=== PATIENT | female | born 1950 | race Caucasian/White ===

== ENCOUNTER 2018-07-17 23:06 | Inpatient (IN) | payer OTHER ==
[~2018-07-17] VITALS: Ht 167.6 cm; Wt 142.4 kg
--- NOTE | ~2018-07-17 | CON ---
[address] [address] CONSULTATION Name: SHELDON PAYNE Room: [address] IN .R.#: [id number] Admission: 07/18/18 Attend Phys: Arturo Aaron Discharge: Date of : 52 Report #: [id number] THIS REPORT FOR: //name// CC: Sami Judge DATE OF SERVICE: 07/18/2018 HISTORY OF PRESENT ILLNESS: The patient is a pleasant 68-year-old female with past medical history significant for diabetes mellitus, hypertension and sleep apnea, who presented to the hospital with epigastric abdominal pain. The patient reports that she had acute onset of pain the night before presentation. The patient states the pain is located in the mid abdomen. It is associated with nausea and a few episodes of vomiting and diaphoresis. The patient also reports malaise and extreme weakness. The patient denies any recent travel or coming into contact with sick people. She reports her last meal was 6:00 p.m. the night prior to presentation, at which time she had some sandwiches from [employer]. The patient denies any hematemesis, hematochezia or recent weight loss. PAST MEDICAL HISTORY: As mentioned above, the patient has a past medical history of hypertension, diabetes, hyperlipidemia and sleep apnea. PAST SURGICAL HISTORY: The patient had laminectomy in 2000. She had remote history of cholecystectomy, tubal ligation and . There is also a history of uterine cancer and had a hysterectomy in the remote past. FAMILY HISTORY: The family history is positive for Crohn's disease, but there is no family history of colorectal cancer. SOCIAL HISTORY: The patient denies smoking, alcohol or recreational drug use. REVIEW OF SYSTEMS: A comprehensive 10-point review of systems is negative, except for what is mentioned in the HPI. PHYSICAL EXAMINATION: GENERAL: Awake, alert and oriented x 3. HEENT: Pupils are equal, round and reactive to light and accommodation. Mucous membranes are moist. There is no congestion. No scleral icterus. LUNGS: Clear to auscultation bilaterally. CARDIOVASCULAR EXAMINATION: Rate and rhythm regular, S1, S2 present. ABDOMEN: Soft. There is no distention. There is no Santos sign. No guarding or rigidity. No tenderness to deep palpation noted. EXTREMITIES: There is no edema. LABORATORY DATA: Hemoglobin 14.8, hematocrit 46.3, platelet count 146,000 [place] [address] CONSULTATION Name: SHELDON PAYNE Room: [address] IN [facility]#: [id number] Admission: 07/18/18 Attend Phys: Arturo Aaron Discharge: Date of : 52 Report #: [id number] WBC count 13.5 with absolute neutrophil count 10 and absolute lymphocyte count 20. AST 47, ALT 81, alkaline phosphatase 127 and total bilirubin 0.5. IMAGING: CT abdomen and pelvis, this demonstrates prominent small bowel loops extending into the pelvis, which may represent partial obstruction versus inflammation of the proximal small bowel. The more distal small bowel is decompressed, although it does contain a small amount of fluid. Small amount of fluid is also present in the cecum. No evidence of pneumatosis, portal vein gas or free air. No evidence of colonic obstruction. Small hiatus hernia, small umbilical hernia, nodular surface of the liver and hypertrophy of the left lobe suggests early cirrhosis. Small periportal lymph node may also be secondary to cirrhosis. ASSESSMENT AND PLAN: This is a pleasant 68-year-old female with past medical history outlined as above, who is presenting with abdominal pain, nausea, vomiting and diaphoresis. The patient noted to have thickening of the small bowel on CT scan. 1. Enteritis. This is likely a viral enteritis and we would recommend conservative therapy at this time. She does not have any evidence of bowel obstruction, and therefore, the patient can be placed on clear liquids and we can advance diet as she tolerates it. 2. Elevated WBC count. This may be reactive in response to viral infection. However, since her lymphocyte count is elevated, I would like to get Hematology consultation to rule out any other causes. 3. Nodular contour seen on the liver along with elevated LFTs. The patient probably has early-stage cirrhosis. We would follow up with her in the clinic in 4-8 weeks for cirrhosis workup. The GI service will continue to follow. Thank you for this consult. By: 1323 2126Doug Spain MD /nt
[~2018-07-17 23:06] MED LIST: ACYCLOVIR 400400 MG PO; CALCIUM; CARDURA; CARDURA1 MG PO; CLEOCIN HCL150 MG PO; COLACE 100 MG100 MG PO; CYCLOBENZAPRINE10 MG PO; GLUCOPHAGE1000 MG PO; JANUVIA25 MG PO; LISINOPRIL20 MG PO; LISINOPRIL5 MG PO; LOTREL 10-20 M1 EACH PO; METFORMIN; MIRALAX255 GM PO; MULTIVIT FLUOR PO; NEURONTIN600 MG PO; NORVASC5 MG PO; OMEGA-31000 MG PO; PERCOCET 5-3251 EACH PO; PRAVACHOL; PREDNISONE 20 M20 M1 PO; PRINIVIL20 MG PO; SUPER B COMPLE1 EAC2 PO; TRAMADOL 50 MG50 MG PO; ULTRAM 50MG TAB50 MG PO; VICODIN 5-5001 EACH PO; VITAMIN A10000 UNI3; VITAMIN D1000 UNI1 PO; VITAMIN E400 UNIT PO; ZOFRAN ODT4 MG PO; ZYLOPRIM300 MG PO
[2018-07-17 23:09] VITALS: BP 127/68
[2018-07-17 23:35] LABS: HEMATOCRIT 46.3 % (37.0-47.0); MCH 29.8 pg (26.0-34.0); MCHC 32.5 g/dL (28.0-37.0); MCV 91.7 fL (80.0-100.0); NUCLEATED RBCS 0 /100WBC; PLATELET COUNT* 146 thou/uL (150-400); RBC 5.05 mil/uL (4.20-5.00); RDW-CV 13.6 % (10.5-14.5); WBC 30.5 thou/uL (4.0-11.0)
[2018-07-17 23:42] LABS: ANION GAP 10 mmol/L (7-16); BUN 23 mg/dL (7-18); CALCIUM 9.2 mg/dL (8.5-10.1); CHLORIDE 102 mmol/L (98-107); CO2 30 mmol/L (21-32); CREATININE 0.9 mg/dL (0.6-1.3); GLUCOSE 185 mg/dL (70-99); POTASSIUM 4.4 mmol/L (3.5-5.1); SODIUM 142 mmol/L (136-145)
[2018-07-17 23:44] LABS: APTT 28.4 Seconds (25.0-31.3); INR 1.1; PROTIME 10.8 Seconds (9.20-11.50)
[2018-07-17] MEDS ORDERED: NEURONTIN600 MG PO (23:57)
[2018-07-18] LABS: ALBUMIN 3.9 g/dL (3.4-5.0); ALKALINE PHOSPHATASE 127 U/L (46-116); CK-MB MASS 2.8 ng/mL (<0.5-3.6); NT-PRO BRAIN NAT PEPTIDE 45 pg/mL (<300); SGOT 47 U/L (15-37); SGPT 81 U/L (30-65); TOTAL BILIRUBIN 0.6 mg/dL (<0.1-1.0); TOTAL PROTEIN 7.4 g/dL (6.4-8.2); TROPONIN-I LEVEL <0.06 ng/mL (<0.06)
[2018-07-18] MEDS ORDERED: MIRALAX17 GM PO (00:01)
[2018-07-18 00:16] LABS: ABSOLUTE LYMPHOCYTES 20.1 thou/uL (0.8-5.3); ABSOLUTE MONOCYTES 0.3 thou/uL (0.0-1.2); ABSOLUTE NEUTROPHILS 10.1 thou/uL (1.6-8.1); ATYPICAL LYMPHS 5 %
[2018-07-18 00:17] LABS: PLATELET ESTIMATE DECREASED
[2018-07-18 00:18] LABS: ANISOCYTOSIS Occasional; OVALOCYTES Occasional; POLYCHROMASIA Occasional
[2018-07-18 01:59] LABS: URINE BILIRUBIN NEGATIVE (Negative); URINE BLOOD NEGATIVE (Negative); URINE CLARITY CLEAR; URINE COLOR YELLOW; URINE GLUCOSE-RANDOM NEGATIVE (Negative); URINE KETONES NEGATIVE (Negative); URINE LEUKOCYTES-REFLEX NEGATIVE (Negative); URINE NITRITE-REFLEX NEGATIVE (Negative); URINE PROTEIN NEGATIVE (Negative); URINE SPECIFIC GRAVITY <= 1.005 (1.005-1.030); URINE UROBILINOGEN 0.2 E.U./dl (0.2-1.0)
[2018-07-18 02:15] VITALS: BP 114/70
[2018-07-18 08:00] VITALS: BP 108/60
[2018-07-18 12:00] VITALS: BP 114/69
[2018-07-18 15:10] LABS: HEMOGLOBIN 14.8 g/dL (11.1-15.9)
[2018-07-18 16:00] VITALS: BP 127/73
[2018-07-18 20:00] VITALS: BP 119/61
[2018-07-19] VITALS (7 sets, daily range): BP systolic 111–143; BP diastolic 46–77
--- NOTE | 2018-07-19 07:01 | CON ---
[address] [address] CONSULTATION Name: SHELDON PAYNE Room: [address] IN M.R.#: [id number] Admission: 07/18/18 Attend Phys: Arturo Aaron Discharge: Date of : 52 Report #: [id number] THIS REPORT FOR: //name// CC: Sami Judge DATE OF SERVICE: 07/18/2018 INFECTIOUS DISEASE CONSULTATION ATTENDING PHYSICIAN: Owen Judge DO REASON FOR EVALUATION: Sepsis, gastroenteritis. HISTORY OF PRESENT ILLNESS: Chart reviewed, patient examined. This is a 68-year-old, with history of diabetes mellitus, who developed illness over the course of a couple of hours last evening with onset of epigastric type discomfort, some nausea. This progressed to very vigorous vomiting and subsequent diaphoresis. She did have what sounds like true rigors as well. Has not had diarrhea. She notes she ate a fish sandwich from [employer] 2 hours prior. She does have history of gallstone pancreatitis and a previous cholecystectomy. She states she has felt somewhat similar. Evaluation with imaging, there is a question of partial small bowel obstruction. At this point, she feels better. She has had some mild nausea earlier. She did not require an NG tube. She is on supplemental oxygen. Initial chest x-ray was otherwise unremarkable. There is question of early cirrhosis. She was empirically started on vancomycin and levofloxacin. She has not had fevers. She is not apparently encephalopathic, although family describes her as quite confused 12 hours prior. ALLERGIES: ERYTHROMYCIN, PENICILLIN, ASPIRIN. MEDICATIONS: Include levofloxacin and vancomycin. She had been on some p.r.n. analgesics and antiemetics. PAST MEDICAL HISTORY: Diabetes mellitus, history of hypertension, sleep apnea, polio, previous hysterectomy, history of laminectomy, cholecystectomy. Does have some history of anxiety. SOCIAL HISTORY: Nonsmoker, no ethanol, no illicit drug use. FAMILY HISTORY: Noncontributory. REVIEW OF SYSTEMS: A 10-point review of system was otherwise unremarkable with the exception of noted in the [place] [address] CONSULTATION Name: SHELDON PAYNE Room: [address]#: [id number] Admission: 07/18/18 Attend Phys: Arturo Aaron Discharge: Date of : 52 Report #: [id number] PHYSICAL EXAMINATION: GENERAL: She appears moderately distressed. She is lucid, reasonably nourished. VITAL SIGNS: Temperature 98.3, pulse 94, respirations 18, blood pressure 114/69. SKIN: Warm, dry, no rashes. HEENT: Extraocular muscles intact. No oral lesions. NECK: Supple. LUNGS: Clear to auscultation. HEART: Regular. I do not appreciate any murmur. ABDOMEN: Soft, mildly obese. There are no peritoneal signs. GENITOURINARY: Deferred. RECTAL: Deferred. EXTREMITIES: No edema. LABORATORY DATA: Shows glucose 175. Lactic acid of 2.7, repeat was 1.9. Electrolytes: Sodium 142, potassium 4.4, chloride 102, bicarbonate is 30, anion gap of 10, BUN and creatinine 23 and 0.9, AST 47, ALT of 81. Total bilirubin of 0.6, albumin of 3.9, total protein is 7.4, lipase 260. Urinalysis unremarkable. Chest x-ray, no acute process. Imaging of the head CT showed some microvascular changes, nothing acute. CT abdomen and pelvis, prominent proximal small bowel, there is question of partial obstruction versus inflammation, question early cirrhosis. Blood cultures sterile thus far. CBC: White count of 30.5, H and H 15.0 and 46.3, platelets of 146. She does have a lymphocytosis of 22,000. There is some smudge cells present, atypical lymphocytes. ASSESSMENT: Suspected gastroenteritis, perhaps staphylococcal aureus, toxin mediated. Other concern would be some sort of primary really issue, although she does not have a gallbladder. She has had history of gallstone pancreatitis, could have passed this stone as well. We will continue empiric antimicrobial therapy, certainly CBC is worrisome. We will ask hematology/oncology to see. We will discuss with Dr. Judge. At this point, she is not overtly unstable, not toxic appearing, may be a transient issue with otherwise occult primary hematological abnormality and certainly warrants further workup. <ELECTRONICALLY SIGNED> By: Moises Amaya MD 07/19/18 0701 1517 1940Moises Amaya MD /nt
[2018-07-19 11:41] LABS: ABSOLUTE EOSINOPHILS 0.1 thou/uL (0.0-0.7); ABSOLUTE LYMPHOCYTES 14.8 thou/uL (0.8-5.3); ABSOLUTE MONOCYTES 0.5 thou/uL (0.0-1.2); ABSOLUTE NEUTROPHILS 2.7 thou/uL (1.6-8.1); BASOPHILS 0.3 %; EOSINOPHILS 0.5 %; HEMATOCRIT 37.3 % (37.0-47.0); LYMPHOCYTES 81.4 %; MCH 29.7 pg (26.0-34.0); MCHC 32.3 g/dL (28.0-37.0); MCV 91.9 fL (80.0-100.0); MONOCYTES 2.9 %; MPV 8.7 fl. (7.2-11.1); NUCLEATED RBCS 0 /100WBC; PLATELET COUNT* 103 thou/uL (150-400); POLYS 14.9 %; RBC 4.06 mil/uL (4.20-5.00); RDW-CV 13.7 % (10.5-14.5); WBC 18.2 thou/uL (4.0-11.0)
[2018-07-19 11:43] LABS: INR 1.1; PROTIME 11.2 Seconds (9.20-11.50)
[2018-07-19 11:44] LABS: CALCIUM 7.6 mg/dL (8.5-10.1); CREATININE 0.5 mg/dL (0.6-1.3); POTASSIUM 3.5 mmol/L (3.5-5.1)
[2018-07-19 11:48] LABS: ALBUMIN 2.9 g/dL (3.4-5.0); TOTAL BILIRUBIN 0.5 mg/dL (<0.1-1.0); TOTAL PROTEIN 5.7 g/dL (6.4-8.2)
--- NOTE | 2018-07-19 14:47 | EKG ---
[place] [address] ELECTROCARDIOGRAM REPORT Name: SHELDON PAYNE Room: [address] ADM IN .R.#: [id number] Admission: 07/18/18 Attend Phys: Arturo Aaron Discharge: Date of : 52 Report #: [id number] THIS REPORT FOR: //name// [facility] ED Test Date: 2018-07-17 Test Time: 23:20:43 Pat Name: SHELDON PAYNE Department: Room: [facility] Gender: F Wind Development Director: Shaka THOMAS : 1950 Requested By: Dhruv Enamorado Order Number: [id number] MD: Percy Luevano Measurements Intervals [place] Rate: 91 P: 60 NE: 161 QRS: 5 QRSD: 103 T: 113 QT: 370 QTc: 456 Interpretive Statements Sinus rhythm LAE, consider biatrial enlargement Anterior infarct, old Baseline wander in lead(s) V1,V2 Compared to ECG 10/02/2013 10:57:15 Sinus tachycardia no longer present Electronically Signed On 07-19-2018 14:46:56 MANAGER PHOTO by Percy Luevano [email or web address] <ELECTRONICALLY SIGNED> By: Percy Luevano MD, FAC 07/19/18 1446 2320 2320 Percy Luevano MD, [facility] /EPI
--- NOTE | 2018-07-19 16:06 | CON ---
[address] [address] CONSULTATION Name: SHELDON PAYNE Room: [address] IN M.R.#: [id number] Admission: 07/18/18 Attend Phys: Arturo Aaron Discharge: Date of : 52 Report #: [id number] THIS REPORT FOR: //name// CC: Sami Judge DATE OF SERVICE: 07/19/2018 REASON FOR CONSULTATION: Leukocytosis. SUBJECTIVE: A 68-year-old female who was evaluated because of symptoms of nausea, vomiting, abdominal pain, started 24 hours prior to admission, associated with lightheadedness, diaphoresis, respiratory distress. She did not have any diarrhea. The patient was evaluated in the Emergency Room and had a CT scan of the abdomen, which showed prominent proximal small bowel extending to the pelvis, may represent partial obstruction versus inflammation of the proximal small bowel. There is a small hiatal hernia with a nodular surface of the liver consistent with early cirrhosis. The patient had a personal history of uterine cancer in her 50s, which was treated with surgery and radiation therapy. Today, the patient has been feeling a little bit better. Her white count upon evaluation was 30,000. Her hemoglobin has been normal. Differential diagnosis was more consistent with elevation of her lymphocytosis, polychromasia, anisocytosis and ovalocytes has been reported. REVIEW OF SYSTEMS: All systems reviewed. It was negative except the above. PAST MEDICAL HISTORY: Uterine cancer, treated with surgery and radiation. No chemotherapy has been given. Hypertension, neuropathy. Diabetes mellitus. PAST SURGICAL HISTORY: Laminectomy, cholecystectomy, tubal ligation, , uterine cancer, shingles. FAMILY HISTORY: Multiple family members, all females, including a sister, mother and aunt had uterine cancer in their 30s. Also, her mother and grandmother had a breast cancer. The patient personally have uterine cancer. SOCIAL HISTORY: No smoking, no alcohol abuse, no drug abuse. ALLERGIES: ERYTHROMYCIN, PENICILLIN AND ASPIRIN. MEDICATIONS: Per admission list. PHYSICAL EXAMINATION: VITAL SIGNS: Today, temperature 36.7, pulse 85, respirations 20, blood pressure is 133/69, SpO2 was 98% on room air. GENERAL: The patient was sitting in chair, [place] [address] CONSULTATION Name: PAYNESHELDON Sury Room: [address]#: [id number] Admission: 07/18/18 Attend Phys: Arturo Aaron Discharge: Date of : 52 Report #: [id number] LUNGS: Clear to auscultations bilaterally. HEART: Regular rate and rhythm. S1, S2 within normal limits. ABDOMEN: Soft, nontender, nondistended. No guarding. Bowel sounds were positive. LABORATORY DATA: Today, WBC 30.5, hemoglobin 15.0, platelets 146. Differential, absolute neutrophilic count was 10.1, absolute lymphocyte count was 20.1. Creatinine 0.9. AST is 47, ALT 81, alkaline phosphatase 127. IMAGING: As mentioned above. ASSESSMENT AND PLAN: A 68-year-old female who has been evaluated because of gastrointestinal symptoms, nausea and vomiting, which her CT scan noted to have enteritis. However, her leukocytosis was predominantly lymphocytosis, not neutrophils, which is less likely to be consistent with her clinical presentation. RECOMMENDATIONS: 1. I would like to obtain a peripheral blood smear to be read by Pathology along with the flow cytometry with a lymphoma and leukemia to evaluate those lymphocytes. In addition to that, we will obtain a BCR-ABL. 2. Very strong family history of breast and uterine cancer and a personal history of uterine cancer. We will evaluate the patient as an outpatient for genetic testing. <ELECTRONICALLY SIGNED> By: Linda Caldwell MD 07/19/18 1606 0819 [id number] Caldwell MD /nt
[2018-07-20] VITALS: BP 132/60
[2018-07-20 04:00] VITALS: BP 115/47
[2018-07-20 05:29] LABS: HEMATOCRIT 37.6 % (37.0-47.0); HEMOGLOBIN 12.2 gm/dL (12.0-15.0); MCHC 32.6 g/dL (28.0-37.0); MCV 92.1 fL (80.0-100.0); MPV 9.3 fl. (7.2-11.1); NUCLEATED RBCS 0 /100WBC; PLATELET COUNT* 105 thou/uL (150-400); RBC 4.08 mil/uL (4.20-5.00); RDW-CV 13.8 % (10.5-14.5); WBC 19.8 thou/uL (4.0-11.0)
[2018-07-20 05:43] LABS: ALBUMIN 2.9 g/dL (3.4-5.0); CALCIUM 8.3 mg/dL (8.5-10.1); CREATININE 0.4 mg/dL (0.6-1.3); POTASSIUM 3.6 mmol/L (3.5-5.1); TOTAL BILIRUBIN 0.6 mg/dL (<0.1-1.0); TOTAL PROTEIN 5.6 g/dL (6.4-8.2)
[2018-07-20 06:25] LABS: % SATURATION 16 % (20-39); IRON 51 ug/dL (50-175)
[2018-07-20 06:38] LABS: ABSOLUTE EOSINOPHILS 0.2 thou/uL (0.0-0.7); ABSOLUTE LYMPHOCYTES 15.4 thou/uL (0.8-5.3); ABSOLUTE MONOCYTES 0.2 thou/uL (0.0-1.2); ATYPICAL LYMPHS 12 %
[2018-07-20 06:39] LABS: PLATELET ESTIMATE ADEQUATE
[2018-07-20 07:40] VITALS: BP 130/61
[2018-07-20 12:38] VITALS: BP 157/85
[2018-07-20 16:50] VITALS: BP 135/61
[2018-07-20 20:00] VITALS: BP 135/66
[2018-07-21] VITALS: BP 134/68
[2018-07-21 04:00] VITALS: BP 126/62
[2018-07-21 07:45] VITALS: BP 140/69
[2018-07-21 11:17] VITALS: BP 140/69
[2018-07-21] MEDS ORDERED: LEVAQUIN 500 M500 M2 PO (11:22)
[2018-07-22 12:05] LABS: ANA INTERPRETATION Negative (Negative)
[2018-07-22 14:08] LABS: HEPATITIS B SURFACE AG Negative (Negative)
--- NOTE | 2018-07-24 17:06 | PATH ---
[address] [address] PATHOLOGY RPT PROCEDURE Name: SHELDON PAYNE Room: [address] IN M.R.#: [id number] Admission: 07/18/18 Date of : 52 Discharge: 07/21/18 Report #: [id number] Path Case #: [id number] [facility] Accession Number: [id number] . 01 Material submitted: . FLOW CYTOMETRY . 02 Diagnosis: Please see included [facility] report [id number]. AZJ/07/24/2018 . 02 Electronically signed: . Hortencia Torres MD, Pathologist NPI- [id number] . 02 Microscopic: . Special studies report received from [facility], [address] [place] [address], [address], [place], [address], on case [id number], labeled with their number [id number], dated 07/24/2018. . Flow Cytometry: Hematologic Neoplasia Assessment . Clinical History Sepsis, weakness, abdominal pain and toxic encephalopathy . Indication for Study Evaluation for hematolymphoid neoplasia . Specimen Peripheral Blood . Viability 90% (7AAD exclusion) . Interpretation Peripheral Blood: - CD5+ monotypic (clonal) B-cell population (63% of leukocytes)(see comments) . Comments The differential diagnosis primarily includes atypical/immunophenotypic variant of B-cell chronic lymphocytic leukemia/small lymphocytic lymphoma (favored), and, less likely, mantle cell lymphoma (other B-cell lymphomas like marginal zone lymphoma and lymphoplasmacytic lymphoma can be CD5+). Correlation with available clinical, laboratory, and morphologic data is recommended. CLL FISH panel, which includes CCND1/IgH translocation, is available and [place] [address] PATHOLOGY RPT PROCEDURE Name: SHELDON PAYNE Room: [address]#: [id number] Admission: 07/18/18 Date of : 52 Discharge: 07/21/18 Report #: [id number] Path Case #: [id number] Populations Analyzed Myeloid Blasts: 0.0% No significant blast population detected Abnormal B-cells: 63% Scatter properties compatible with small to intermediate cell size, cells characterized as: CD45+, CD5+, CD10-, CD11c+, CD19+, CD20+ (moderate), CD22+, CD23+, CD38+/-, FMC7+ (partial), HLA-DR+, sIg kappa+ (dim) Remaining 24% B-cells: 1%, polytypic/polyclonal sIg light chain Lymphocytes: pattern T-cells: no significant abnormalities of the markers tested CD4+ T-cells: 10.5% (including 0.7% CD57+ cells) CD8+ T-cells: 4.7% (including 3.0% CD57+ cells) CD4:CD8: 2.3 NK cells: 2.3% Neutrophils: 5% No significant abnormalities of the markers tested Monocytes: 3% No significant abnormalities of the markers tested Eosinophils: 2% No relative increase Basophils: 0.3% No relative increase . Morphologic Evaluation A slide was reviewed for clinical quality manager purposes only. . Specimen Description Total Cell Yield: 6.48 X 10 and 6 . . Reagent(s) Used CD2, CD3, CD4, CD5, CD7, CD8, CD10, CD11b, CD11c, CD13, CD14, CD16, CD19, CD20, CD22, CD23, CD33, CD34, CD38, CD45, CD56, CD57, CD64, CD117, FMC-7, HLA-DR, kappa, lambda . at [facility]. Henna Hernandez MD Pathologist . Intended Use Flow cytometry is optimally used to immunophenotypically characterize abnormal populations when they are detected. Negative flow cytometry results do not exclude lymphoma or neoplasia. Possible false negative flow cytometry results may occur in, but are not limited to, the following: neoplastic cells in Hodgkin lymphoma are not typically adequately represented by routine clinical flow cytometry; neoplastic cells may be lost or inadequately represented due to degeneration, sample processing, sampling artifact, or patchy involvement; plasma cells are typically underrepresented by flow cytometry; immature cells/blasts may be underrepresented due to hemodilution; myeloproliferative disorders and low grade myelodysplasia may not [place] [address] PATHOLOGY RPT PROCEDURE Name: SHELDON PAYNE Room: [address] IN M.R.#: [id number] Admission: 07/18/18 Date of : 52 Discharge: 07/21/18 Report #: [id number] Path Case #: [id number] increased blasts. Correlation with all available clinical, laboratory, and morphologic data is always necessary to assess for the possibility of false negative flow cytometry results and to establish a diagnosis. Each marker in this analysis was used to assess for potential antigenic abnormalities or to evaluate detected abnormalities. . Disclaimer(s) This test was performed at [facility]. at [address] [facility] [address], [place], [address] - [employer] Developer: Branden Farah MD. [email or web address] is a business unit of [employer] a wholly-owned subsidiary of [employer]. . Any image or images that accompany this report are inbound sales representative images only and should not be used to render a diagnosis. . This test was developed and its performance characteristics determined by [facility]. It has not been cleared or approved by the Food and Drug Administration (FDA). The FDA has determined that such clearance or approval is not necessary. . For inquiries, the physician may contact Lab: [phone] . A complete copy of the report is on file. . Professional services performed by [facility]. at [address], [place] [address]. Technical services performed by [facility] at [address], [place] [address]. . (AM 07/24/2018) . . 02 Pathologist provided ICD-10: A41.9, R53.1, R10.9, G92 . 02 CPT . 255118 Specimen Comment: A courtesy copy of this report has been sent to Specimen Comment: [phone], , . Specimen Comment: Report sent to , and Performed at: 01 [facility] [address] [id number] MD Alexander Ordonez MD Phone: [phone] Performed at: 02 [facility] [address] [id number] [place] [address] PATHOLOGY RPT PROCEDURE Name: SHELDON PAYNE Room: [address] IN [facility].#: [id number] Admission: 07/18/18 Date of : 52 Discharge: 07/21/18 Report #: [id number] Path Case #: [id number] MD Israel Pereira MD Phone: [phone]
== END 2018-07-21 13:11 | disposition home or self-care (01) | DRG 871 ==
LOC: M.ERS 23:06 → M.2W 07-18 01:23 → M.TBA-ER 07-18 01:23 → M.2W 07-18 01:56
PROVIDERS: Family Medicine; Internal Medicine Gastroenterology; ADMIT Internal Medicine
DX: A41.9 Sepsis, unspecified organism (principal); G92 Toxic encephalopathy; J96.20 Acute and chronic respiratory failure, unspecified whether with hypoxia or hypercapnia; Z68.43 Body mass index [BMI] 50.0-59.9, adult; I10 Essential (primary) hypertension; F41.9 Anxiety disorder, unspecified; E11.40 Type 2 diabetes mellitus with diabetic neuropathy, unspecified; K52.9 Noninfective gastroenteritis and colitis, unspecified; E78.5 Hyperlipidemia, unspecified; G47.33 Obstructive sleep apnea (adult) (pediatric); G89.29 Other chronic pain; M54.9 Dorsalgia, unspecified; E66.01 Morbid (severe) obesity due to excess calories; K42.9 Umbilical hernia without obstruction or gangrene; E86.0 Dehydration; K74.60 Unspecified cirrhosis of liver; Z90.49 Acquired absence of other specified parts of digestive tract; Z86.12 Personal history of poliomyelitis; Z85.42 Personal history of malignant neoplasm of other parts of uterus; Z90.710 Acquired absence of both cervix and uterus; Z88.6 Allergy status to analgesic agent; Z88.1 Allergy status to other antibiotic agents; Z88.0 Allergy status to penicillin; Z92.21 Personal history of antineoplastic chemotherapy; Z92.3 Personal history of irradiation; Z80.59 Family history of malignant neoplasm of other urinary tract organ; Z80.3 Family history of malignant neoplasm of breast; Z83.79 Family history of other diseases of the digestive system; Z86.010 Personal history of colon polyps; Z79.899 Other long term (current) drug therapy

== ENCOUNTER → 2018-08-06 | Outpatient (CLI) | payer OTHER ==
[~2018-08-06] MED LIST changes: +LEVAQUIN 500 M500 M2 PO; +MIRALAX17 GM PO
[2018-08-06 13:11] LABS: HEMATOCRIT 41.3 % (37.0-47.0); HEMOGLOBIN 13.4 gm/dL (12.0-15.0); MCHC 32.4 g/dL (28.0-37.0); MCV 89.6 fL (80.0-100.0); MPV 8.4 fl. (7.2-11.1); NUCLEATED RBCS 0 /100WBC; PLATELET COUNT* 158 thou/uL (150-400); RBC 4.61 mil/uL (4.20-5.00); RDW-CV 13.2 % (10.5-14.5); WBC 21.3 thou/uL (4.0-11.0)
[2018-08-06 13:31] LABS: ALBUMIN 3.8 g/dL (3.4-5.0); CALCIUM 9.3 mg/dL (8.5-10.1); CREATININE 0.6 mg/dL (0.6-1.3); POTASSIUM 3.8 mmol/L (3.5-5.1); TOTAL BILIRUBIN 0.8 mg/dL (<0.1-1.0); TOTAL PROTEIN 7.2 g/dL (6.4-8.2)
[2018-08-06 13:42] LABS: ABSOLUTE MONOCYTES 0.4 thou/uL (0.0-1.2); ABSOLUTE NEUTROPHILS 3.8 thou/uL (1.6-8.1); ATYPICAL LYMPHS 39 %
[2018-08-06 13:43] LABS: PLATELET ESTIMATE ADEQUATE
--- NOTE | 2018-08-07 08:40 | HEMONC ---
[address] [address] HEMATOLOGY ONCOLOGY NOTE Name: SHELDON PAYNE Room: [facility]#: [id number] Admission: 08/06/18 Attend Phys: Linda Caldwell MD Discharge: Date of : 52 Report #: [id number] THIS REPORT FOR: //name// CC: Linda Caldwell Primary Care Physician Sami Lowry DATE OF SERVICE: 08/06/2018 DIAGNOSIS: Probable non-Hodgkin lymphoma. SUBJECTIVE: The patient presented today as a hospital followup. She was admitted because of enteritis. However, her CBC at the hospital showed that she has leukocytosis, predominantly lymphocytes. I obtained a flow cytometry which showed CD5 monotypic clonal B cell population of 60% of the leukocytes. A differential diagnosis including CLL, less likely mantle cell lymphoma. The patient has been fairly well. However, she has been having GI symptoms while in the hospital and after discharge. The patient denies any fever or chills. She has weight loss, however, based on her diet modifications. REVIEW OF SYSTEMS: All systems were reviewed. It was negative, except the above. PAST MEDICAL HISTORY: As mentioned above and in her previous visits. SOCIAL HISTORY: As mentioned above and in her previous visits. FAMILY HISTORY: As mentioned above and in her previous visits. PHYSICAL EXAMINATION: VITAL SIGNS: Today, blood pressure is 118/72, pulse is 87, respirations 22, temperature is 97.0 and pulse ox 94% on room air. GENERAL: The patient was sitting in a chair. She was not in acute distress. LUNGS: Clear to auscultation bilaterally. HEART: Regular rate and rhythm. S1, S2 within normal limits. ABDOMEN: Soft, nontender. EXTREMITIES: With +1 edema bilaterally. MEDICATIONS: Medication list has been reviewed. LABORATORY DATA: Most recent labs on 07/21/2018, WBC 18.1, hemoglobin 12.5 and platelets 108,000. Differential showed absolute lymphocyte was 15.4. Creatinine is 0.6. ASSESSMENT AND PLAN: A 68-year-old female who has a past medical history of diabetes, hypertension, dyslipidemia [place] [address] HEMATOLOGY ONCOLOGY NOTE Name: SHELDON PAYNE Room: [facility]#: [id number] Admission: 08/06/18 Attend Phys: Linda Caldwell MD Discharge: Date of : 52 Report #: [id number] uterine cancer, was evaluated because of increased lymphocytosis in the setting of enteritis. Her lymphocyte flow cytometry showed CD5 monotypic B-cell population, raising the concern of chronic lymphocytic leukemia/small lymphocytic lymphoma. RECOMMENDATIONS: 1. I would like to obtain a full workup including bone marrow biopsy. 2. PET CT scan to evaluate any underlying lymphadenopathy. 3. The patient already had genetic counseling appointments due to her strong family history of uterine and breast cancer. Followup in 2 weeks after her workup is done. We will obtain CBC, CMP, LDH and hepatitis profile today. <ELECTRONICALLY SIGNED> By: Linda Caldwell MD 08/07/18 0840 1045 1223Mohamzoila Caldwell MD /nt
[2018-08-07 16:10] LABS: KAPPA FREE LIGHT CHAINS 32.6 mg/L (3.3-19.4); LAMBDA FREE LIGHT CHAINS 14.6 mg/L (5.7-26.3)
== END ==
LOC: M.RTH 03:47
PROVIDERS: Internal Medicine
DX: C91.10 Chronic lymphocytic leukemia of B-cell type not having achieved remission (principal); E11.9 Type 2 diabetes mellitus without complications; I10 Essential (primary) hypertension; E78.5 Hyperlipidemia, unspecified; Z85.42 Personal history of malignant neoplasm of other parts of uterus

== ENCOUNTER → 2018-08-15 | Outpatient (CLI) | payer OTHER ==
[~2018-08-15] VITALS: Ht 167.6 cm; Wt 139.3 kg
[2018-08-15 09:25] VITALS: BP 128/68; BP 143/68
[2018-08-15 09:25] LABS: HEMATOCRIT 40.9 % (37.0-47.0); HEMOGLOBIN 13.3 gm/dL (12.0-15.0); MCH 28.9 pg (26.0-34.0); MCHC 32.5 g/dL (28.0-37.0); MPV 8.6 fl. (7.2-11.1); NUCLEATED RBCS 0 /100WBC; PLATELET COUNT* 129 thou/uL (150-400); RDW-CV 13.6 % (10.5-14.5)
[2018-08-15 09:44] LABS: CALCIUM 9.5 mg/dL (8.5-10.1); CREATININE 0.7 mg/dL (0.6-1.3); POTASSIUM 3.9 mmol/L (3.5-5.1)
[2018-08-15 09:45] LABS: PROTIME 10.5 Seconds (9.20-11.50)
[2018-08-15 09:47] LABS: ABSOLUTE LYMPHOCYTES 18.6 thou/uL (0.8-5.3); ABSOLUTE NEUTROPHILS 4.4 thou/uL (1.6-8.1); ATYPICAL LYMPHS 41 %; PLATELET ESTIMATE ADEQUATE
[2018-08-15 10:45] VITALS: BP 144/79
--- NOTE | 2018-08-27 22:06 | PATH ---
[address] [address] PATHOLOGY RPT PROCEDURE Name: SHELDON NARVAEZ Room: [facility] VERONICA Murcia#: [id number] Admission: 08/15/18 Date of : 52 Discharge: Report #: [id number] Path Case #: [id number] L[facility] Accession Number: [id number] . 01 Material submitted: . PART A: BONE CORE PART B: BONE CLOT PART C: BONE ASP PART D: PERIPHERAL SMEAR PART E: BONE MARROW FLOW . 01 Clinical history: . Increased WBC, non-Hodgkin's . 68-year-old woman with leukocytosis/lymphocytosis and recent diagnosis of non-Hodgkin lymphoma. . 02 Diagnosis: Bone marrow aspirate, biopsy, cell clot and peripheral blood: - PERIPHERAL BLOOD WITH CHRONIC LYMPHOCYTIC LEUKEMIA/SMALL LYMPHOCYTIC LYMPHOMA. - HYPERCELLULAR BONE MARROW WITH TRILINEAGE HEMATOPOIESIS AND INVOLVEMENT BY CHRONIC LYMPHOCYTIC LEUKEMIA/SMALL LYMPHOCYTIC LYMPHOMA (60-70% INVOLVEMENT BY IMMUNOHISTOCHEMICAL STAINING). - No stainable iron. - See comment. (TE:nidia; 08/19/2018) . . Please see included [facility] report [id number]. AZJ/08/19/2018 . 02 Comment: Overall, the bone marrow is hypercellular for the patient's age with trilineage hematopoiesis and involvement by chronic lymphocytic leukemia/small lymphocytic lymphoma. The clonal B-cell population was previously identified in the peripheral blood ([phone]). There is approximately 60-70% involvement by immunohistochemical staining. Correlation with clinical history, additional laboratory data, cytogenetics and radiographic findings is recommended. . Glass Blowing Instructor slides are also reviewed by Dr. Nancy Rios. . (TE:nidia; 08/19/2018) . 02 Addendum: . Special studies report received from [facility], [address] [place] [address], [address], [place], [address], on case [id number], [place] [address] PATHOLOGY RPT PROCEDURE Name: SHELDON NARVAEZ Room: [facility] Murcia#: [id number] Admission: 08/15/18 Date of : 52 Discharge: Report #: [id number] Path Case #: [id number] with their number [id number], dated 08/21/2018. . Immunoglobulin Heavy Chain Gene Variable Region (IgVH) Somatic Hypermutation Analysis . INTERPRETATION: See Comments. . Indication for Study: CLL . Specimen Type: Bone Marrow . Comments: Although a clonal population was detected in the initial PCR, subsequent sequence analysis did not yield interpretable result. This scenario was sometimes obtained when the clonal population was admixed with an increasing oligoclonal background of cells. Correlation with total clinical data and follow up as necessary is recommended. . See Flow Cytometry report [id number] for further information. See Cytogenetic report [id number] for further information. See FISH report [id number] for further information. . Analytical Results: Assay Type Detection Parameters Result IgVH Mutation Analysis VH1-7 No Result . at [employer]. Ej Buchanan, Ph.D., YESY DABMG, DABCC, DLMcm, M(ASCP)cm, MB(ASCP)cm . Methodology: The Immunoglobulin Heavy Chain Gene Variable Region (IgVH) Somatic Hypermutation Analysis assay is performed using extracted patient RNA as starting material. Subsequent amplification of the IgH gene is performed by polymerase chain reaction (PCR). The PCR products are isolated and sequenced. The nucleotide sequence is compared to a consensus germline sequence database for that VH gene family. The results are reported as percentage of homology between the patient's VH sequence in comparison with the germline VH sequence using the Basic Local Alignment Search Tool (BLAST) for the immunoglobulin database at http://www.ncbi.nlm.nih.gov/igblast. . Intended Use: The IgVH gene mutation status is one of the discriminators of clinical outcome of patients with Chronic Lymphocytic Leukemia (CLL). The sensitivity of the assay is approximately 15% of the clonal B-cell in the polyclonal background. The results of this [place] [address] PATHOLOGY RPT PROCEDURE Name: SHELDON NARVAEZ Room: [facility]#: [id number] Admission: 08/15/18 Date of : 52 Discharge: Report #: [id number] Path Case #: [id number] in the context of all clinical and laboratory findings. No therapeutic action should be taken solely based upon these results. . References: 1. Mookie Sam et al. (2002) VH mutation status, CD38 expression level, genomic aberrations, and survival in chronic lymphocytic leukemia. Blood 100(4):9868-6861. 2. Tamika. Ariane et al. (1998) Chronic Lymphocytic Leukemia B Cells Express Restricted Sets of Mutated and Unmutated Antigen Receptors. J Clin Invest 102(8):6498-8804. 3. TAimee Luna et al. (1999) Unmutated IgVH genes are associated with a more aggressive form of chronic lymphocytic leukemia. Blood 94(6):6205-1390. 4. Taimka. Maged et al. (1998) The complete nucleotide sequence of the human immunoglobulin heavy chain variable region locus. J. Exp Med 188(11):8180-5129. . Disclaimer This Test was performed by [employer] at [address] [place] [address], [address]. [facility] is a business unit of [employer] a wholly-owned subsidiary of [employer]. . . This test was developed and its performance characteristics determined by [employer] It has not been cleared or approved by the Food and Drug Administration. . A complete copy of the report is on file. . Professional services performed by [facility]. at [address] [place], [place] [address]. Technical services performed by [employer]. at [address] [place] [address], [address], [place] [address]. . (AMJ 08/22/2018) . AZJ/08/22/2018 Addendum Electronically Signed by Hortencia Torres MD, Pathologist Addendum #2: Special studies report received from [facility], [address] [place] [address], [address], [place], [address], on case [id number], labeled with their number [id number], dated 08/24/2018. . Fluorescence in situ Hybridization (FISH) Report TargetGene Analysis . 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 Specimen Type: Bone Marrow . Indication for Study: Evaluate for CLL. . INTERPRETATION: Fluorescence in situ hybridization (FISH) analysis was performed on this patient's specimen using DNA probes for CLL panel. Two hundred interphase nuclei were examined for each probe and the signal patterns revealed the following: . 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 . The signal pattern obtained with the remaining probes did not differ significantly from the normal controls. . Trisomy of chromosome 12 is detected in approximately 20% of patients with B-cell chronic lymphocytic leukemia (B-CLL) by FISH analysis. It is generally associated with an intermediate to a poor prognosis. . Genetic changes other than those assayed in this study cannot be ruled out on the basis of this testing. Correlation with cytogenetic, clinical and hematopathological findings is suggested for a complete interpretation of the results. Follow-up FISH analysis may be considered as a means to monitor the clinical course of the disease. . See Flow Cytometry report [id number] for further information. See Cytogenetic report [id number] for further information. See Molecular report [id number] for further information. . The following TargetGene FISH analysis was performed on this patient's specimen: Probe Detection Parameters Result ISCN Centromere 12 Detects a trisomy 12 Detected nuc trudy(U21W0y9) (99/200) 13q14(DLEU1) Detects a deletion Not Detected nuc trudy(DLEU1,TFDP1)x2 of 13q (200) HUSSAIN/11q Detects a deletion Not Detected nuc trudy(ATMx2)(200) of HUSSAIN gene TP53/17p13 Detects a deletion Not Detected nuc trudy(TP53x2)(200) of TP53 gene CCND1/IGH - Detects a CCND1/IGH Not Detected nuc trudy(CCND1,IGH)x2 t(11;14) translocation (200) . Electronically Signed by Aaron Michaels, PhD, [facility] on 08/24/2018 at [employer] Aaron Michaels, PhD, [facility] Senior Coding Machine Operator, [place] [address] PATHOLOGY RPT PROCEDURE Name: SHELDON NARVAEZ [facility] [id number] Admission: 08/15/18 Date of : 52 Discharge: Report #: [id number] Path Case #: [id number] . Methodology: The patient specimen is processed onto a glass slide. Fluorescent DNA probe(s) is(are) applied to the cells on the slide under conditions of denaturation followed by hybridization. Stringency washes are applied and the slide is subsequently counterstained. A minimum of 100 interphase nuclei are analyzed unless otherwise indicated above. . Disclaimer This Test was performed by [employer]. at [address] [place] [address]. [facility] is a business unit of [employer] a wholly-owned subsidiary of [employer]. . . Any image(s) that accompany this report is/are a healthcare sales representative image(s) only and should not be used to render a diagnosis. . This test was developed and its performance characteristics determined by [employer] It has not been cleared or approved by the Food and Drug Administration. . A complete copy of the report is on file. . Professional services performed by [facility]. at [facility] [address], [facility] [address] [address]. Technical services performed by [employer]. at [address] [place] [address]. . (AMJ 08/26/2018) . AZJ/08/26/2018 Addendum Electronically Signed by Hortencia Torres MD, Pathologist Addendum #3: Special studies report received from [facility], [address] [place] [address], on case [id number], labeled with their number [id number], dated 08/27/2018. . Cytogenetic Analysis Report . RESULT: Abnormal Female Karyotype 47,XX,+12(10)/46,XX(10) . Specimen Type: Bone Marrow . Indication for Study: Leukocytosis. Evaluate for CLL, NHL. . INTERPRETATION: [address] [address] PATHOLOGY RPT PROCEDURE Name: SHELDON NARVAEZ Room: [facility]#: [id number] Admission: 08/15/18 Date of : 52 Discharge: Report #: [id number] Path Case #: [id number] Cytogenetic analysis revealed ten of twenty metaphase cells with a gain of one copy (trisomy) of chromosome 12. No other clonal abnormalities were observed. This finding is concordant with the concurrent FISH test results. . Trisomy 12 is one of the most common chromosome abnormalities in chronic lymphocytic leukemia (CLL), generally associated with an intermediate to a poor prognosis. It has also been observed in other B-cell lymphoproliferative/lymphoid malignancies, such as non-Hodgkin lymphoma (NHL). These results should be interpreted in the context of clinical and histopathologic findings. . See Flow Cytometry report [id number] for further information. See FISH report [id number] for further information. See Molecular report [id number] for further information. . Number of Metaphases Counted: 20 Banding: G-banding Number of Metaphase Cells Analyzed: 20 Band Level: 375 Number of Metaphase Cells Karyotyped: 4 Cultures Established: Unstimulated/Stimulated . . at [employer] Brianda Cadena, PhD, FACMG Director of Clinical Cytogenetics . Disclaimer This Test was performed by [facility] at [address] [address], [place], [address]. . [facility] is a business unit of [employer] a wholly-owned subsidiary of [employer]. . . Any image(s) that accompany this report is/are a healthcare sales representative image(s) only and should not be used to render a diagnosis. . Based on the resolution of this study, standard cytogenetic methodology does not routinely detect subtle or sub-microscopic rearrangements or low level mosaicism. . A complete copy of the report is on file. . Professional services performed by [facility]. at [address], [place] [address]. Technical services performed by [employer]. at [facility] [address], [place] [address]. [place] [address] PATHOLOGY RPT PROCEDURE Name: SHELDON NARVAEZ Room: [facility]#: [id number] Admission: 08/15/18 Date of : 52 Discharge: Report #: [id number] Path Case #: [id number] . . (AMJ 08/27/2018) . AZJ/08/27/2018 Addendum Electronically Signed by Hortencia Torres MD, Pathologist . 02 Electronically signed: . Hortencia Torres MD, Pathologist NPI- [id number] . 01 Gross description: . A. The specimen is received in formalin, labeled "Narvaez, Iris, core" and consists of 2 bone cores measuring 0.5 and 0.6 cm in length and 0.2 cm each in diameter. They are entirely submitted in A1 following decalcification. . B. The specimen is received in formalin, labeled "Narvaez, Iris, clot" and consists of blood clot measuring 2.6 x 1.6 x 0.3 cm which is entirely submitted in B1. (SDY; 08/15/2018) SYU/SYU . 02 Microscopic: . CBC Data (08/15/18): WBC 23,000 /uL, RBC 4.60, hemoglobin 13.3 g/dL, hematocrit 40.9%, MCV 89.0 fL, MCH 28.9 pg, MCHC 32.5 g/dL, RDW 13.6%, and platelet count 129,000 /uL. Manual white blood cell differential: segs 19%, lymphs 40%, atypical lymphs 41%. . Peripheral Blood Smear: Cytomorphological examination of the Cabrera's stained peripheral blood smear confirms the provided data. Red blood cells are normocytic and are without significant anisopoikilocytosis. White blood cells are mild to moderately increased in number. They are predominantly lymphocytes that are small, round and mature-appearing with condensed chromatin and scant cytoplasm. Admixed reactive-appearing lymphocytes and large granular lymphocytes are also noted. No large cell (prolymphocyte) component is identified. Granulocytes are predominantly segmented neutrophils and are without significant dyspoiesis or significant left shift. Monocytes are mature. Platelets are adequate (mildly decreased) in number and mainly normal in morphology with rare larger platelets noted. . Aspirate Smears: Cytomorphological examination of the Cabrera's stained aspirate smears shows hypercellular spicules present. The overall cellularity is approximately 60%. There is an increase in small mature-appearing lymphocytes. Apart from the lymphocytes, the myeloid to erythroid ratio is 1:1. Myeloid maturation is without significant dyspoiesis. Erythroid maturation is mildly dyserythropoietic [place] [address] PATHOLOGY RPT PROCEDURE Name: SHELDON NARVAEZ Room: [facility]#: [id number] Admission: 08/15/18 Date of : 52 Discharge: Report #: [id number] Path Case #: [id number] In a 500 cell differential, there are less than 1% blasts (no Lito rods are seen), 9% more differentiated myeloids, 12% erythroid precursors, and 79% lymphocytes. Lymphocytes are predominantly small, round and mature appearing with condensed chromatin and scant cytoplasm . No significant large lymphoid (prolymphocyte) component is identified. Rare plasma cells are without atypia. Iron stain of the aspirate smear shows 0/4+ iron positivity with spicules present. No ringed sideroblasts are identified. . Core Biopsy and Cell Clot: The decalcified bone marrow core biopsy is small but adequate. The bone marrow is hypercellular with an overall cellularity of approximately 60-70%. There is an increase in interstitial lymphocytes forming vague aggregates. Apart from the lymphocytes, the myeloid to erythroid ratio is 1:1. Myeloid and erythroid maturation are without significant dyspoiesis. Megakaryocytes are normal in number and both normal and abnormal in morphology. No markedly atypical lymphoid cells are seen. Bony trabeculae and blood vessels are unremarkable. The cell clot has spicules present that are similar in cellularity and differential morphology as previously described. Again, fairly well-circumscribed and infiltrative lymphoid aggregates are noted. No markedly atypical lymphoid cells are seen. . Properly controlled special stains are performed. . Block A1 Iron - 0/4+ iron positivity (no stainable iron) Reticulin - No significant reticulin fibrosis . Block B1 Iron - 0/4+ iron positivity (no stainable iron) . To further quantify and characterize the neoplastic B-cell population and to identify cells in a tissue architectural context, properly controlled immunohistochemical stains are performed. . Block A1 CD20 - Stains approximately 60% interstitial neoplastic B-cells. CD3 - Highlights occasional admixed T-cells. CD5 - Weak B-cell coexpression. CD10 - No B-cell coexpression BCL-6 - No B-cell coexpression BCL-2 - Diffusely stains lymphocytes CD23 - B-cell coexpression Cyclin D1 - No B-cell coexpression . Block B1 CD20 - Stains 60-70% neoplastic B-cells including the well-circumscribed and irregular lymphoid aggregates. CD3 - Highlights [place] [address] PATHOLOGY RPT PROCEDURE Name: SHELDON NARVAEZ Room: [facility]#: [id number] Admission: 08/15/18 Date of : 52 Discharge: Report #: [id number] Path Case #: [id number] CD5 - Weak B-cell coexpression CD10 - No B-cell coexpression BCL-6 - No B-cell coexpression BCL-2 - Diffusely stains the B-cells CD23 - B-cells coexpression Cyclin D1 - No B-cell coexpression . Flow Cytometry: Flow cytometric immunophenotypic analysis was performed at [facility]. The diagnosis is "CD5 positive monotypic (clonal) B-cell population (57% of sample)." There are 57% abnormal B-cells that are small to intermediate in cell size and characterized as CD45 positive, CD5 positive, CD10 negative, CD11C negative/positive, CD19 positive, CD20 positive, CD22 positive, CD23 positive, CD38 negative, FMC7 negative/positive (37%), HLA-DR positive, and surface kappa positive. There are 10% remaining lymphocytes. There are 1% B-cells with a polyclonal surface light chain pattern. T-cells have a CD4/CD8 ratio of 1.7 and no aberrant T-cell antigen expression. There are 0.6% myeloid blasts. Please see separate flow cytometry report from [facility] ([id number]). . Cytogenetics Analysis: Cytogenetic chromosomal analysis has been ordered at [facility]. . (CLW:nidia; 08/19/2018) . . Special studies report received from [facility], [address] [place] [address], [address], [place], [address], on case [id number], labeled with their number [id number], dated 08/16/2018. . Flow Cytometry: Hematologic Neoplasia Assessment . Clinical History Leukocytosis, NHL . Indication for Study Evaluation for non-Hodgkin lymphoma . Specimen Bone Marrow Aspirate . Viability 91% (7AAD exclusion) . Interpretation Bone Marrow Aspirate: CD5+ monotypic (clonal) B-cell population (57% of sample) (see comments) [place] [address] PATHOLOGY RPT PROCEDURE Name: SHELDON NARVAEZ Room: [facility]#: [id number] Admission: 08/15/18 Date of : 52 Discharge: Report #: [id number] Path Case #: [id number] Comments The differential diagnosis primarily includes atypical/ immunophenotypic variant of B-cell chronic lymphocytic leukemia/small lymphocytic lymphoma (favored), and, less likely, mantle cell lymphoma (other B-cell lymphomas like marginal zone lymphoma and lymphoplasmacytic lymphoma can be CD5+). Correlation with available clinical, laboratory, and morphologic data is recommended. CLL FISH panel, which includes CCND1/IgH translocation has been ordered and the results will help for further clarification. . Populations Analyzed Myeloid Blasts: 0.6% No significant immunophenotypic abnormalities Abnormal B-cells: 57% Scatter properties compatible with small to intermediate cell size, cells characterized as: CD45+, CD5+, CD10-, CD11c-/+, CD19+, CD20+, CD22+, CD23+, CD38-, FMC7-/+(37%+), HLA-DR+, sIg kappa+ Remaining 10% B-cells: 1%, polytypic/polyclonal sIg light chain Lymphocytes: pattern T-cells: no significant abnormalities of the markers tested CD4+ T-cells: 4.8% (including 0.4% CD57+ cells) CD8+ T-cells: 2.8% (including 1.5% CD57+ cells) CD4:CD8: 1.7 NK cells: 0.9% Neutrophilic Cells: 28% No significant abnormalities of the markers tested Monocytic Cells: 2% No significant abnormalities of the markers tested Eosinophils: 1% No relative increase Basophils: 0.2% No relative increase Plasma Cells: 0.0% Few detected; no overt abnormalities of the surface markers tested (plasma cells are typically underrepresented by flow cytometry; cytoplasmic light chains were not assessed) Hematogones: 0.3% Normal B-cell precursors CD45 Negative 0.9% No significant reactivity with the markers tested Events/Debris: (may represent unlysed red blood cells, erythroid precursors, platelets, debris, etc.)(erythroid precursors may be underrepresented due to sample lysis/processing) . Morphologic Evaluation A slide was reviewed for senior quality analyst purposes only. . Specimen Description Total Cell Yield: 18.86 X 10 and 6 . Pertinent Prior Test Results Received Date Test [place] [address] PATHOLOGY RPT PROCEDURE Name: SHELDON NARVAEZ Room: [facility]#: [id number] Admission: 08/15/18 Date of : 52 Discharge: Report #: [id number] Path Case #: [id number] 07/22/2018 Flow Cytometry Bone Marrow Result Number: [id number] Peripheral Blood: - CD5+ monotypic (clonal) B-cell population (63% of leukocytes)(see comments) 07/22/2018 FISH - Bone Marrow Result Number: [id number] TargetGene Panel Result: No assay specific abnormalities detected by BCR/ABL1-ASS1 FISH probe . . Reagent(s) Used CD2, CD3, CD4, CD5, CD7, CD8, CD10, CD11b, CD11c, CD13, CD14, CD16, CD19, CD20, CD22, CD23, CD33, CD34, CD38, CD45, CD56, CD57, CD64, CD117, FMC-7, HLA-DR, kappa, lambda . at [employer]. Nicole Lawson MD Pathologist . . Intended Use Flow cytometry is optimally used to immunophenotypically characterize abnormal populations when they are detected. Negative flow cytometry results do not exclude lymphoma or neoplasia. Possible false negative flow cytometry results may occur in, but are not limited to, the following: neoplastic cells in Hodgkin lymphoma are not typically adequately represented by routine clinical flow cytometry; neoplastic cells may be lost or inadequately represented due to degeneration, sample processing, sampling artifact, or patchy involvement; plasma cells are typically underrepresented by flow cytometry; immature cells/blasts may be underrepresented due to hemodilution; myeloproliferative disorders and low grade myelodysplasia may not have immunophenotypic abnormalities or increased blasts. Correlation with all available clinical, laboratory, and morphologic data is always necessary to assess for the possibility of false negative flow cytometry results and to establish a diagnosis. Each marker in this analysis was used to assess for potential antigenic abnormalities or to evaluate detected abnormalities. . Disclaimer(s) This test was performed at [facility]. at [address] [place] [address], [id number] - Bus Operator: Branden Farah MD. [employer] is a business unit of [employer] a wholly-owned subsidiary of [employer]. . Any image or images that accompany this report are healthcare [place] [address] PATHOLOGY RPT PROCEDURE Name: SHELDON NARVAEZ [facility] [id number] Admission: 08/15/18 Date of : 52 Discharge: Report #: [id number] Path Case #: [id number] only and should not be used to render a diagnosis. . This test was developed and its performance characteristics determined by [facility]. It has not been cleared or approved by the Food and Drug Administration (FDA). The FDA has determined that such clearance or approval is not necessary. . For inquiries, the physician may contact Lab: [phone] . A complete copy of the report is on file. . Professional services performed by [facility]. at [address], [place] [address]. Technical services performed by [facility] [employer] at [address], [place] [address]. . (AMJ 08/15/2018) . . 02 Pathologist provided ICD-10: C91.10 . 02 CPT . 295075, 407743, 770291, 812139, 800699, 775023, 550430, 025022, 719946, N99956, X28892 Specimen Comment: A courtesy copy of this report has been sent to Specimen Comment: [phone], . Specimen Comment: Report sent to and Specimen Comment: A duplicate report has been generated due to demographic updates. Performed at: 01 [facility] [address] [id number] MD Alexander Ordonez MD Phone: [phone] Performed at: 02 [facility] [address] [id number] MD Israel Pereira MD Phone: [phone]
== END | disposition home or self-care (01) ==
LOC: M.INT 08-08 08:30
PROVIDERS: Radiology Vascular & Interventional Radiology
DX: C91.10 Chronic lymphocytic leukemia of B-cell type not having achieved remission (principal); D70.4 Cyclic neutropenia; I10 Essential (primary) hypertension; G47.33 Obstructive sleep apnea (adult) (pediatric); E11.9 Type 2 diabetes mellitus without complications; Z98.890 Other specified postprocedural states; Z98.51 Tubal ligation status; Z85.42 Personal history of malignant neoplasm of other parts of uterus; Z90.710 Acquired absence of both cervix and uterus; Z79.899 Other long term (current) drug therapy; Z79.01 Long term (current) use of anticoagulants; Z88.0 Allergy status to penicillin; Z88.8 Allergy status to other drugs, medicaments and biological substances

== ENCOUNTER → 2018-09-10 | Outpatient (CLI) | payer OTHER ==
--- NOTE | ~2018-09-10 | HEMONC ---
[address] [address] HEMATOLOGY ONCOLOGY NOTE Name: SHELDON PAYNE Room: [facility]#: [id number] Admission: 09/10/18 Attend Phys: Linda Caldwell MD Discharge: Date of : 52 Report #: [id number] THIS REPORT FOR: //name// CC: Linda Lowry DATE OF SERVICE: 09/10/2018 PROBLEM: Stage 1 CLL/SLL. SUBJECTIVE: A 68-year-old female presented today for followup after she had a PET/CT scan, which showed mild uptake in the right cervical lymph nodes. There has been mild splenomegaly; however, she was told that she had a fatty liver. I obtained a bone marrow biopsy, which showed CLL/SLL. The patient continues to feel totally asymptomatic. She is very active. She denies any fevers, drenching night sweats, severe fatigue, or weight loss. REVIEW OF SYSTEMS: All systems reviewed. It was negative except the above. PAST MEDICAL, SOCIAL, FAMILY HISTORY: Unchanged except the above. PHYSICAL EXAMINATION: VITAL SIGNS: Today per her chart by physical examination, the patient was sitting in chair, was not in acute distress. LUNGS: Clear to auscultations bilaterally. HEART: Regular rate and rhythm. S1, S2 within normal limits. ABDOMEN: Soft, nontender. NECK: No palpable lymphadenopathy. LABORATORY DATA: On 08/15/2018, WBC is 23.0, absolute lymphocyte count is 18.6, hemoglobin is 13.3, platelets 129. LDH is 192. PET/CT scan and bone marrow biopsy as mentioned above. ASSESSMENT AND PLAN: 1. A 68-year-old female who was found to have a lymphocytosis, incidental findings, which triggered flow cytometry that led to bone marrow biopsy. She was diagnosed with stage 1 of CLL based on lymphocytosis consistent with CLL/SLL and her PET/CT scan showed very mild FDG uptake lymph nodes in the right cervical area. At this point, the patient does not have any symptoms. No evidence of cytopenias. No progressive lymphadenopathy or ascites or pleural effusion. At this point, I would like to monitor the patient. No indication to initiate treatment. We will obtain FISH studies on her bone marrow biopsy [place] [address] HEMATOLOGY ONCOLOGY NOTE Name: SHELDON PAYNE [id number] Admission: 09/10/18 Attend Phys: Linda Caldwell MD Discharge: Date of : 52 Report #: [id number] 2. The patient had a strong family history of uterine cancer. She did not show up for her genetic counseling. We will rearrange that. By: 1030 [id number] Caldwell MD /nt
[2018-09-10 11:35] LABS: HEMATOCRIT 41.1 % (37.0-47.0); HEMOGLOBIN 13.5 gm/dL (12.0-15.0); MCH 29.4 pg (26.0-34.0); MCHC 32.9 g/dL (28.0-37.0); MCV 89.4 fL (80.0-100.0); MPV 8.7 fl. (7.2-11.1); NUCLEATED RBCS 0 /100WBC; PLATELET COUNT* 114 thou/uL (150-400); RDW-CV 13.5 % (10.5-14.5); WBC 20.3 thou/uL (4.0-11.0)
[2018-09-10 11:51] LABS: ALBUMIN 3.7 g/dL (3.4-5.0); CALCIUM 9.1 mg/dL (8.5-10.1); CREATININE 0.7 mg/dL (0.6-1.3); POTASSIUM 4.3 mmol/L (3.5-5.1); TOTAL BILIRUBIN 0.6 mg/dL (<0.1-1.0)
[2018-09-10 12:03] LABS: ABSOLUTE BASOPHILS 0.2 thou/uL (0.0-0.2); ABSOLUTE LYMPHOCYTES 18.7 thou/uL (0.8-5.3); ABSOLUTE NEUTROPHILS 1.4 thou/uL (1.6-8.1)
[2018-09-10 12:04] LABS: MICROCYTES 1+
[2018-09-10 12:08] LABS: PLATELET ESTIMATE ADEQUATE
== END ==
LOC: M.RTH 08-20 10:00
PROVIDERS: Internal Medicine
DX: C91.10 Chronic lymphocytic leukemia of B-cell type not having achieved remission (principal); C85.80 Other specified types of non-Hodgkin lymphoma, unspecified site; Z80.49 Family history of malignant neoplasm of other genital organs

== ENCOUNTER → 2018-11-21 | Outpatient (CLI) | payer OTHER ==
[2018-11-21 10:02] LABS: HEMATOCRIT 40.6 % (37.0-47.0); HEMOGLOBIN 13.3 gm/dL (12.0-15.0); MCH 28.9 pg (26.0-34.0); MCHC 32.7 g/dL (28.0-37.0); MCV 88.5 fL (80.0-100.0); MPV 8.7 fl. (7.2-11.1); NUCLEATED RBCS 0 /100WBC; PLATELET COUNT* 119 thou/uL (150-400); RBC 4.59 mil/uL (4.20-5.00); RDW-CV 14.3 % (10.5-14.5); WBC 22.1 thou/uL (4.0-11.0)
[2018-11-21 10:09] LABS: PROTIME 10.7 Seconds (9.20-11.50)
[2018-11-21 10:30] LABS: ABSOLUTE LYMPHOCYTES 19.4 thou/uL (0.8-5.3); ABSOLUTE MONOCYTES 0.2 thou/uL (0.0-1.2); ABSOLUTE NEUTROPHILS 2.4 thou/uL (1.6-8.1); ATYPICAL LYMPHS 11 %; PLATELET ESTIMATE ADEQUATE
[2018-11-21 10:38] LABS: ALBUMIN 3.6 g/dL (3.4-5.0); CALCIUM 8.7 mg/dL (8.5-10.1); CREATININE 0.7 mg/dL (0.6-1.3); POTASSIUM 4.3 mmol/L (3.5-5.1); TOTAL BILIRUBIN 0.7 mg/dL (<0.1-1.0); TOTAL PROTEIN 6.8 g/dL (6.4-8.2)
[2018-11-21 11:00] VITALS: BP 123/58
[2018-11-21 11:05] VITALS: BP 123/68
[2018-11-21 11:10] VITALS: BP 98/46
[2018-11-21 12:27] VITALS: BP 014/46
[2018-11-21 13:32] VITALS: BP 105/55
--- NOTE | 2018-11-27 11:06 | PATH ---
[address] [address] PATHOLOGY RPT PROCEDURE Name: SHELDON NARVAZE [facility] [id number] Admission: 11/21/18 Date of : 52 Discharge: Report #: [id number] Path Case #: [id number] Accession Number: [id number] . 01 Material submitted: . liver - LIVER BIOPSY . 01 Clinical history: . Fatty liver, nonalcoholic cirrhosis . 02 Diagnosis: Liver biopsy: - Liver with minute lymphoid aggregate suspicious for involvement by chronic lymphocytic leukemia/small lymphocytic lymphoma, and with less than 5% steatosis, focal sinusoidal dilatation, and no significant fibrosis. See comment. (RILEY:nidia; 11/22/2018) MBBillie/11/26/2018 . 02 Comment: The biopsies show near normal liver tissue save for an isolated lymphoid aggregate seen in A3 which is evaluated with properly controlled immunohistochemical stains having results as follows: . PAX-5 (B cell): scattered positive CD3 (T cell): scattered positive CD5: Positive (relatively greater than CD23) CD23: Positive (less than CD5 positivity) . These findings are suspicious for involvement by chronic lymphocytic leukemia/small lymphocytic lymphoma. The clinical history of chronic lymphocytic leukemia/small lymphocytic lymphoma diagnosed on bone marrow biopsy and aspirate in July 2018 ([id number]), raises the possibility of liver involvement. Focal/minimal sinusoidal dilatation raises a question of intrahepatic or extrahepatic obstruction. A panel of properly-controlled special stains performed on each of blocks A1, A2 and A3, each show the following results: . Iron: Negative PAS with and without diastase: No PAS-positive/diastase resistant globules Reticulin: Normal hepatic plates Trichrome: No significant fibrosis . Reviewed with Dr. Nahomy Almaraz and Dr. Nancy Rios (hematopathologist) who agree with the diagnosis. . Special stains: A1, A2 and A3 each have a PAS with and without diastase, [place] [address] PATHOLOGY RPT PROCEDURE Name: SHELDON NARVAEZ Room: [facility]#: [id number] Admission: 11/21/18 Date of : 52 Discharge: Report #: [id number] Path Case #: [id number] reticulin, iron and trichrome. A3 also has PAX-5, CD3, CD5 and CD23. . (RILEY:nidia; 11/22/2018) . 02 Electronically signed: . Agapito Lowry MD, Pathologist NPI- [id number] . 01 Gross description: . Received in formalin labeled "Narvaez, Iris, liver BX," are 3 distinct needle cores of salazar soft tissue ranging from 1.4 to 2.5 cm in length and measuring less than 0.1 cm each in diameter. The specimen is submitted entirely in cassettes A1 through A3. (TSD; 11/21/2018) TOB/TOB . 02 Pathologist provided ICD-10: K76.0 . 02 CPT . 852099, 122341, 446717, 115710, 123977, 185328, 363280, 300529, 692806, 938130, P97195, K65871, 879369, 494989, 261738 Specimen Comment: A courtesy copy of this report has been sent to Specimen Comment: [phone], , . Specimen Comment: Report sent to ,DR STORY / DR WAITE Performed at: [address], [place], [place] [id number] MD Alexander Ordonez MD Phone: [phone] Performed at: 02 [facility] [address], [place], [place] [id number] MD Agapito Lowry MD Phone: [phone]
== END | disposition home or self-care (01) ==
LOC: M.LAB 09:00 → M.ULTRA 10:00
PROVIDERS: Internal Medicine Gastroenterology
DX: K76.0 Fatty (change of) liver, not elsewhere classified (principal); K74.60 Unspecified cirrhosis of liver; I10 Essential (primary) hypertension; E11.9 Type 2 diabetes mellitus without complications; G47.33 Obstructive sleep apnea (adult) (pediatric); Z90.49 Acquired absence of other specified parts of digestive tract; Z98.890 Other specified postprocedural states; Z79.899 Other long term (current) drug therapy; Z98.51 Tubal ligation status; Z90.710 Acquired absence of both cervix and uterus; Z85.42 Personal history of malignant neoplasm of other parts of uterus; Z80.0 Family history of malignant neoplasm of digestive organs; Z88.8 Allergy status to other drugs, medicaments and biological substances

== ENCOUNTER → 2018-12-10 | Outpatient (CLI) | payer OTHER ==
--- NOTE | 2018-12-11 13:01 | HEMONC ---
[address] [address] HEMATOLOGY ONCOLOGY NOTE Name: SHELDON PAYNE Room: [facility]#: [id number] Admission: 12/10/18 Attend Phys: Linda Caldwell MD Discharge: Date of : 52 Report #: [id number] THIS REPORT FOR: //name// CC: Vinay Plasencia MD DATE OF SERVICE: 12/10/2018 DIAGNOSIS: Stage 1 chronic lymphocytic leukemia. REASON FOR CONSULTATION: Stage 1 chronic lymphocytic leukemia. SUBJECTIVE: The patient presented today as a 3-month followup. She continues to be active and having no B symptoms. She denies any fevers, night sweats, weight loss. We reviewed her labs, which showed very mild thrombocytopenia. REVIEW OF SYSTEMS: All systems were reviewed. It was negative except the above. PAST MEDICAL, SOCIAL AND FAMILY HISTORY: Unchanged from previous visit. LABORATORY DATA: Most recent labs, WBC is 22.1, hemoglobin normal at 13.3, platelets 119. Absolute lymphocyte count was 19.4, which is stable compared to 06/2018. PHYSICAL EXAMINATION: VITAL SIGNS: Today, blood pressure is 119/77, pulse is 83, respirations 18, temperature is 97.4, pulse is 96% on room air. GENERAL: The patient was sitting in chair, was not in acute distress. LUNGS: Clear to auscultations bilaterally. HEART: Regular rate and rhythm. S1, S2 within normal limits. No cervical lymphadenopathy. ASSESSMENT AND PLAN: A 68-year-old female who has been diagnosed with a stage I chronic lymphocytic leukemia with lymphocytosis and mild lymphadenopathy in the right cervical area. At this point, the patient continues to be active. She does not meet the criteria to initiate treatment. Her hemoglobin and platelets within normal range. The patient does not have any progressive lymphadenopathy or bulky lymph nodes. 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 RECOMMENDATIONS: We will continue to monitor the [place] [address] HEMATOLOGY ONCOLOGY NOTE Name: SHELDON PAYNE [facility] [id number] Admission: 12/10/18 Attend Phys: Linda Caldwell MD Discharge: Date of : 52 Report #: [id number] like to obtain followup labs in 3 months from today. The patient was advised to call if she developed any new symptoms. <ELECTRONICALLY SIGNED> By: Linda Caldwell MD 12/11/18 1301 1049 [id number] Caldwell MD /nt
== END ==
LOC: M.RTH 07:11
DX: C91.10 Chronic lymphocytic leukemia of B-cell type not having achieved remission (principal); R59.1 Generalized enlarged lymph nodes

== ENCOUNTER → 2019-03-04 | Outpatient (CLI) | payer OTHER ==
[2019-03-04 11:23] LABS: HEMATOCRIT 42.5 % (37.0-47.0); HEMOGLOBIN 13.7 gm/dL (12.0-15.0); MCHC 32.3 g/dL (28.0-37.0); MCV 89.7 fL (80.0-100.0); MPV 8.6 fl. (7.2-11.1); NUCLEATED RBCS 0 /100WBC; PLATELET COUNT* 129 thou/uL (150-400); RBC 4.74 mil/uL (4.20-5.00); RDW-CV 14.4 % (10.5-14.5); WBC 21.6 thou/uL (4.0-11.0)
[2019-03-04 11:43] LABS: ALBUMIN 3.9 g/dL (3.4-5.0); CALCIUM 9.6 mg/dL (8.5-10.1); CREATININE 0.6 mg/dL (0.6-1.3); POTASSIUM 4.4 mmol/L (3.5-5.1); TOTAL BILIRUBIN 0.7 mg/dL (<0.1-1.0); TOTAL PROTEIN 6.9 g/dL (6.4-8.2)
[2019-03-04 12:32] LABS: ABSOLUTE LYMPHOCYTES 17.3 thou/uL (0.8-5.3); ABSOLUTE MONOCYTES 0.4 thou/uL (0.0-1.2); ABSOLUTE NEUTROPHILS 3.9 thou/uL (1.6-8.1); PLATELET ESTIMATE DECREASED
== END ==
LOC: M.LAB 11:06
PROVIDERS: Internal Medicine
DX: C85.80 Other specified types of non-Hodgkin lymphoma, unspecified site (principal)

== ENCOUNTER → 2019-03-11 | Outpatient (CLI) | payer OTHER ==
--- NOTE | 2019-03-12 17:25 | HEMONC ---
[address] [address] HEMATOLOGY ONCOLOGY NOTE Name: SHELDON PAYNE Room: [facility]#: [id number] Admission: 03/11/19 Attend Phys: Linda Caldwell MD Discharge: Date of : 52 Report #: [id number] THIS REPORT FOR: //name// CC: Linda Lowry DATE OF SERVICE: 03/11/2019 DIAGNOSIS: Stage 1 CLL. SUBJECTIVE: The patient presented today as a 3 months' followup. Since her last visit, she denies any active symptoms. No nausea, no vomiting, no abdominal pain. The patient denies any B symptoms like fever, chills, night sweats or weight loss. She denies any lymphadenopathy. REVIEW OF SYSTEMS: All systems were reviewed, were negative except the above. MEDICATION: List has been reviewed. PHYSICAL EXAMINATION: VITAL SIGNS: Today, temperature is 96.8, blood pressure is 115/75, pulse is 86, respirations 24, saturation is 97% on room air. GENERAL: The patient was sitting in chair, was not in acute distress. LUNGS: Clear to auscultations bilaterally. HEART: Regular rate and rhythm. S1, S2 within normal limits. ABDOMEN: Soft, nontender, nondistended, bowel sounds positive. LABORATORY DATA: On 03/04/2019, WBC 21.6, hemoglobin 13.7, platelets 129, absolute lymphocyte count was 17.3. Total LDH within normal range 211. ASSESSMENT AND PLAN: A 68-year-old female diagnosed with a stage 1 chronic lymphocytic lymphoma with lymphocytosis, mild lymphadenopathy in the right cervical area. At this point, the patient does not meet the criteria to initiate treatment. No cytopenias or symptoms related to her disease or progressive lymphadenopathy. Plan is to continue to monitor the patient clinically. Follow up with labs in 5 months. <ELECTRONICALLY SIGNED> By: Linda Caldwell MD 03/12/19 1725 1048 [id number] Caldwell MD /nt
== END ==
LOC: M.RTH 05:20
DX: C91.10 Chronic lymphocytic leukemia of B-cell type not having achieved remission (principal)

== ENCOUNTER → 2019-09-17 | Outpatient (CLI) | payer MEDICARE ==
[2019-09-17 14:14] LABS: HEMATOCRIT 38.7 % (37.0-47.0); HEMOGLOBIN 12.5 gm/dL (12.0-15.0); MCH 28.1 pg (26.0-34.0); MCHC 32.4 g/dL (28.0-37.0); MCV 86.9 fL (80.0-100.0); MPV 8.6 fl. (7.2-11.1); NUCLEATED RBCS 0 /100WBC; PLATELET COUNT* 126 thou/uL (150-400); RBC 4.45 mil/uL (4.20-5.00); RDW-CV 14.9 % (10.5-14.5); WBC 25.9 thou/uL (4.0-11.0)
[2019-09-17 14:36] LABS: ALBUMIN 3.6 g/dL (3.4-5.0); CALCIUM 8.8 mg/dL (8.5-10.1); CREATININE 0.6 mg/dL (0.6-1.3); POTASSIUM 4.4 mmol/L (3.5-5.1); TOTAL BILIRUBIN 0.5 mg/dL (<0.1-1.0)
[2019-09-17 14:56] LABS: ABSOLUTE EOSINOPHILS 0.3 thou/uL (0.0-0.7); ABSOLUTE LYMPHOCYTES 22.3 thou/uL (0.8-5.3); ABSOLUTE MONOCYTES 0.3 thou/uL (0.0-1.2); ABSOLUTE NEUTROPHILS 3.1 thou/uL (1.6-8.1); PLATELET ESTIMATE ADEQUATE
== END ==
LOC: M.LAB 13:51
PROVIDERS: Internal Medicine
DX: C85.80 Other specified types of non-Hodgkin lymphoma, unspecified site (principal)

== ENCOUNTER → 2019-09-23 | Outpatient (CLI) | payer MEDICARE ==
--- NOTE | 2019-09-28 14:10 | HEMONC ---
[address] [address] HEMATOLOGY ONCOLOGY NOTE Name: SHELDON PAYNE Room: [facility]#: [id number] Admission: 09/23/19 Attend Phys: Linda Caldwell MD Discharge: Date of : 52 Report #: [id number] THIS REPORT FOR: //name// CC: Linda Lowry DATE OF SERVICE: 09/23/2019 DIAGNOSIS: Stage 1, chronic lymphocytic leukemia. SUBJECTIVE: The patient presented today as a followup. Since her last visit, she has been doing very well. She denies any B symptoms like fever, night sweats or weight loss. She denies any early satiety. The patient denies any other symptoms. No nausea, vomiting or fatigue. REVIEW OF SYSTEMS: All systems were reviewed. It was negative except the above. PAST MEDICAL, SOCIAL AND FAMILY HISTORY: Unchanged from last visit. MEDICATIONS: List has been reviewed. PHYSICAL EXAMINATION: VITAL SIGNS: Today, blood pressure is 115/75, pulse is 86, respirations 24, temperature is 96.8, sat is 97% on room air. GENERAL: The patient was sitting in chair. She was not in acute distress. LUNGS: Clear to auscultations bilaterally. HEART: Regular rate and rhythm. S1, S2 within normal limits. ABDOMEN: Soft, nontender, nondistended, bowel sounds positive. LABORATORY DATA: On 09/17/2019, WBC 25.9, hemoglobin is 12.5, platelets 126. LDH is 237. ASSESSMENT AND PLAN: A 69-year-old female, who has been diagnosed with stage 1 of CLL. At this point, the patient continues to be asymptomatic. Her lymphocyte count continues to be stable. The patient had a prior splenomegaly due to fatty liver. We will continue to monitor the patient in 6 months. She was advised to call if she developed any new symptoms. <ELECTRONICALLY SIGNED> By: Linda Caldwell MD 09/28/19 1410 1033 [id number] Caldwell MD /nt
== END ==
LOC: M.RTH 08-12 10:00
DX: C91.10 Chronic lymphocytic leukemia of B-cell type not having achieved remission (principal)

== ENCOUNTER 2019-12-08 01:07 | Observation (INO) | payer MEDICARE ==
[~2019-12-08] VITALS: Ht 167.6 cm; Wt 161.5 kg
[2019-12-08 01:08] VITALS: BP 139/95
[2019-12-08] MEDS ORDERED: AMARYL2 M1 PO (01:32)
[2019-12-08] MEDS ORDERED: LIPITOR 20 MG T20 M1 PO (01:34)
[2019-12-08] MEDS ORDERED: ACTOS 30 MG TAB30 M1 PO (01:34)
[2019-12-08 01:35] LABS: HEMATOCRIT 39.1 % (37.0-47.0); HEMOGLOBIN 12.5 gm/dL (12.0-15.0); MCH 28.1 pg (26.0-34.0); MCV 87.6 fL (80.0-100.0); MPV 8.8 fl. (7.2-11.1); NUCLEATED RBCS 0 /100WBC; PLATELET COUNT* 132 thou/uL (150-400); RBC 4.46 mil/uL (4.20-5.00); RDW-CV 15.1 % (10.5-14.5)
[2019-12-08] MEDS ORDERED: SINGULAIR 10 MG10 MG PO (01:36)
[2019-12-08] MEDS ORDERED: CENTRUM SILVER1 EAC4 PO (01:40)
[2019-12-08 01:48] LABS: CALCIUM 8.5 mg/dL (8.5-10.1); CREATININE 0.9 mg/dL (0.6-1.3)
[2019-12-08 01:52] LABS: PROTIME 10.7 Seconds (9.20-11.50)
[2019-12-08 01:59] LABS: ALBUMIN 3.6 g/dL (3.4-5.0); MAGNESIUM 1.4 mg/dL (1.8-2.4); TOTAL BILIRUBIN 0.6 mg/dL (<0.1-1.0)
[2019-12-08 02:36] LABS: URINE BILIRUBIN NEGATIVE (Negative); URINE BLOOD NEGATIVE (Negative); URINE CLARITY CLEAR; URINE COLOR STRAW; URINE GLUCOSE-RANDOM NEGATIVE (Negative); URINE KETONES NEGATIVE (Negative); URINE LEUKOCYTES-REFLEX NEGATIVE (Negative); URINE NITRITE-REFLEX NEGATIVE (Negative); URINE PROTEIN NEGATIVE (Negative); URINE UROBILINOGEN 0.2 E.U./dl (0.2-1.0)
[2019-12-08 02:56] LABS: ABSOLUTE BASOPHILS 0.3 thou/uL (0.0-0.2); ABSOLUTE LYMPHOCYTES 24.8 thou/uL (0.8-5.3); ABSOLUTE MONOCYTES 1.7 thou/uL (0.0-1.2); ABSOLUTE NEUTROPHILS 6.3 thou/uL (1.6-8.1)
[2019-12-08 02:57] LABS: PLATELET ESTIMATE DECREASED
[2019-12-08 08:39] VITALS: BP 127/76
--- NOTE | 2019-12-08 09:09 | NUR ---
PT ORIENTED TO ROOM AND UNIT, BED LOW AND LOCKED, SIDE RAILS UPX3, CALL LIGHT IN REACH. TELE APPLIED, WILL CONTINUE TO ASSESS.
[2019-12-08 12:07] VITALS: BP 108/59
[2019-12-08 15:44] VITALS: BP 118/64
--- NOTE | 2019-12-08 16:37 | EKG ---
[place] [address] ELECTROCARDIOGRAM REPORT Name: SHELDON PAYNE Room: [address]R.#: [id number] Admission: 12/08/19 Attend Phys: Paz story Sa Discharge: Date of : 52 Date of Service: 12/08/19 0113 Report #: [id number] THIS REPORT FOR: //name// [facility] ED Test Date: 2019-12-08 Test Time: 01:13:52 Pat Name: SHELDON PAYNE Department: Room: [facility] Gender: F Information Manager: [place] : 1950 Requested By: Edith Goodman Order Number: [id number] MD: Cristino Acosta Measurements Intervals [place] Rate: 92 P: 56 LA: 173 QRS: 18 QRSD: 101 T: 242 QT: 368 QTc: 456 Interpretive Statements Sinus arrhythmia Multiple ventricular premature complexes LAE, consider biatrial enlargement Borderline repolarization abnormality Compared to ECG 07/17/2018 23:20:43 Ventricular premature complex(es) now present ST (T wave) deviation now present Sinus rhythm no longer present Myocardial infarct finding no longer present Electronically Signed On 12-08-2019 16:35:35 CDT by Cristino Acosta [email or web address] <ELECTRONICALLY SIGNED> By: Cristino Acosta MD, [facility] 12/08/19 1635 2 2 Cristino Acosta MD, [facility] /EPI
--- NOTE | 2019-12-08 16:39 | 2DMMODE ---
[place] [address] 2 D/M-MODE ECHOCARDIOGRAM Name: SHELDON PAYNE Room: [address] Bharat Murcia#: [id number] Admission: 12/08/19 Attend Phys: Paz story Sa Discharge: Date of : 52 Date of Service: 12/08/19 1637 Report #: [id number] THIS REPORT FOR: cc: Sami Lowry MD, Tuongvan T. MD Holkins, John M. MD MERGED WITH [facility] ~ APPROVED REPORT Study performed: 12/08/2019 14:37:14 EXAM: Comprehensive 2D, Doppler, and color-flow Echocardiogram Patient Location: In-Patient Room #: [facility] Status: routine BSA: 2.56 HR: 43 bpm BP: 118/64 mmHg Rhythm: NSR Other Information Study Quality: Good Indications Dyspnea 2D Dimensions IVSd: 14.59 (7-11mm) LVOT Diam: 23.56 (18-24mm) LVDd: 52.40 mm PWd: 12.46 (7-11mm) Ascending Ao: 39.94 (22-36mm) LVDs: 32.26 (25-40mm) Aortic Root: 36.11 mm Volumes Left Atrial Volume (Systole) LA ESV Index: 30.20 mL/m2 Aortic Valve AoV Peak Froy.: 1.90 m/s AO Peak Gr.: 14.45 mmHg LVOT Max P.07 mmHg AO Mean Gr.: 8.46 mmHg LVOT Mean P.89 mmHg LVOT Max V: 1.23 m/s AO V2 VTI: 40.43 cm LVOT Mean V: 0.77 m/s RENAN (VTI): 2.96 cm2 LVOT V1 VTI: 27.42 [place] [address] 2 D/M-MODE ECHOCARDIOGRAM Name: SHELDON PAYNE [facility]#: [id number] Admission: 12/08/19 Attend Phys: Paz story Sa Discharge: Date of : 52 Date of Service: 12/08/19 1637 Report #: [id number] Mitral Valve E/A Ratio: 0.70 MV Decel. Time: 296.89 ms MV E Max Froy.: 0.81 m/s MV PHT: 86.10 ms MVA (PHT): 2.56 cm2 TDI E/Lateral E': 9.00 Lateral E' Froy.: 0.09 m/s Pulmonary Valve PV Peak Froy.: 1.18 m/s PV Peak Gr.: 5.55 mmHg Tricuspid Valve RAP Estimate: 5.00 mmHg TR Peak Gr.: 35.14 mmHg RVSP: 40.00 mmHg PA Pressure: 40.00 mmHg Left Ventricle The left ventricle is normal size. There is normal LV segmental wall motion. Mild concentric left ventricular hypertrophy. Left ventricular systolic function is normal. The left ventricular ejection fraction is within the normal range. LVEF is 55-60%. Grade I - abnormal relaxation pattern. Right Ventricle The right ventricle is normal size. The right ventricular systolic function is normal. Atria The left atrium size is normal. The right atrium size is normal. Aortic Valve Mild aortic valve sclerosis. No aortic regurgitation is present. There is no aortic valvular stenosis. Mitral Valve There is mitral annular calcification.. Trace mitral regurgitation. No evidence of mitral valve stenosis. Tricuspid Valve The tricuspid valve is normal in structure. Mild tricuspid regurgitation. [place] [address] 2 D/M-MODE ECHOCARDIOGRAM Name: SHELDON PAYNE Room: [address] Bharat Murcia#: [id number] Admission: 12/08/19 Attend Phys: Paz story Sa Discharge: Date of : 52 Date of Service: 12/08/19 1637 Report #: [id number] Pulmonic Valve The pulmonary valve is normal in structure. There is no pulmonic valvular regurgitation. Great Vessels The aortic root is normal in size. IVC is normal in size and collapses >50% with inspiration. Pericardium There is no pericardial effusion. <Conclusion> The left ventricle is normal size. Mild concentric left ventricular hypertrophy. Left ventricular systolic function is normal. The left ventricular ejection fraction is within the normal range. Grade I - abnormal relaxation pattern. The right ventricle is normal size. The left atrium size is normal. Mild aortic valve sclerosis. No aortic regurgitation is present. There is no aortic valvular stenosis. There is mitral annular calcification.. Trace mitral regurgitation. No evidence of mitral valve stenosis. The tricuspid valve is normal in structure. Mild tricuspid regurgitation. Mild pulmonary hypertension. IVC is normal in size and collapses >50% with inspiration. There is no pericardial effusion. There is normal LV segmental wall motion. LVEF is 55-60%. <ELECTRONICALLY SIGNED> By: Percy Luevano MD, FACC 12/08/19 163 36 36 Percy Luevano MD, FACC /INF
[2019-12-08 20:35] VITALS: BP 140/68
[2019-12-09] VITALS: BP 127/72
[2019-12-09 04:00] VITALS: BP 125/62
--- NOTE | 2019-12-09 04:28 | NUR ---
ASSUMED CARE OF PT 12/08/19 AT APPROX 1930. PT A&OX4, ON O2 2L NC, VSS, PAIN MED REQUESTED AND GIVEN ORDERED. ASSESSMENTS AND HOURLY ROUNDINGS COMPLETED. WILL CONTINUE TO MONITOR.
[2019-12-09 08:00] VITALS: BP 97/57
[2019-12-09 11:57] VITALS: BP 97/57
--- NOTE | 2019-12-09 12:52 | NUR ---
Pt discharging to home today. Consult received for FOSTER to arrange home o2, Pt already has a concentrator and cpap at home. CM reached out to Pt, Pt stated "I'm leaving now, have the o2 tanks delivered to my home." FOSTER updated Pt's nurse and Dr. HUTCHISON faxed o2 referral to [facility], asked that they deliver tanks to Pt's home. Pt's son provided dc transportation.
--- NOTE | 2019-12-09 13:15 | NUR ---
ASSUMED CARE OF PATIENT AT APPROX 0730. ALERT AND ORIENTED X4. ASSESSMENT COMPLETED AND CHARTED. VSS ON 2 LITERS 02. PATIENT UP STAND BY ASSIST TO THE BATHROOM. SHORTNESS OF AIR ON EXERTION WITHOUT OXYGEN. PATIENT DISCHARGED AT 1240 WITH ALL PERSONAL BELONGINGS AND DISCHARGE INFORMATION.
== END 2019-12-09 12:40 | disposition home or self-care (01) ==
LOC: M.ERS 01:07 → M.TBA-ER 04:08 → M.2W 09:01
PROVIDERS: Emergency Medicine; ADMIT Family Medicine
DX: J96.01 Acute respiratory failure with hypoxia (principal); I27.20 Pulmonary hypertension, unspecified; E66.2 Morbid (severe) obesity with alveolar hypoventilation; I10 Essential (primary) hypertension; E11.40 Type 2 diabetes mellitus with diabetic neuropathy, unspecified; D69.6 Thrombocytopenia, unspecified; R16.1 Splenomegaly, not elsewhere classified; C91.10 Chronic lymphocytic leukemia of B-cell type not having achieved remission; G89.29 Other chronic pain; I87.8 Other specified disorders of veins; M71.21 Synovial cyst of popliteal space [Baker], right knee

== ENCOUNTER 2020-08-05 04:32 | Emergency (ER) | payer MEDICARE ==
[~2020-08-05] VITALS: Ht 167.6 cm; Wt 158.8 kg
[~2020-08-05 04:32] MED LIST changes: +ACTOS 30 MG TAB30 M1 PO; +AMARYL2 M1 PO; +CENTRUM SILVER1 EAC4 PO; +LIPITOR 20 MG T20 M1 PO; +SINGULAIR 10 MG10 MG PO
[2020-08-05 06:55] LABS: HEMATOCRIT 36.2 % (37.0-47.0); HEMOGLOBIN 11.6 gm/dL (12.0-15.0); MCH 28.9 pg (26.0-34.0); MCHC 32.1 g/dL (28.0-37.0); MCV 89.9 fL (80.0-100.0); MPV 8.1 fl. (7.2-11.1); NUCLEATED RBCS 0 /100WBC; PLATELET COUNT* 111 thou/uL (150-400); RBC 4.02 mil/uL (4.20-5.00); RDW-CV 14.3 % (10.5-14.5); WBC 26.6 thou/uL (4.0-11.0)
[2020-08-05 07:05] LABS: CREATININE 0.7 mg/dL (0.6-1.3); POTASSIUM 4.4 mmol/L (3.5-5.1)
[2020-08-05 07:37] LABS: URINE BILIRUBIN NEGATIVE (Negative); URINE BLOOD NEGATIVE (Negative); URINE CLARITY CLEAR; URINE COLOR YELLOW; URINE GLUCOSE-RANDOM NEGATIVE (Negative); URINE KETONES NEGATIVE (Negative); URINE LEUKOCYTES-REFLEX NEGATIVE (Negative); URINE NITRITE-REFLEX NEGATIVE (Negative); URINE PROTEIN NEGATIVE (Negative); URINE SPECIFIC GRAVITY >= 1.030 (1.005-1.030); URINE UROBILINOGEN 0.2 E.U./dl (0.2-1.0)
[2020-08-05 07:53] LABS: ABSOLUTE BASOPHILS 0.3 thou/uL (0.0-0.2); ABSOLUTE LYMPHOCYTES 18.9 thou/uL (0.8-5.3); ABSOLUTE MONOCYTES 0.5 thou/uL (0.0-1.2); ABSOLUTE NEUTROPHILS 6.9 thou/uL (1.6-8.1); ATYPICAL LYMPHS 10 %
[2020-08-05 07:54] LABS: PLATELET ESTIMATE DECREASED
[2020-08-05 08:18] LABS: ALBUMIN 3.3 g/dL (3.4-5.0); DIRECT BILIRUBIN 0.2 mg/dL (<0.1-0.3); TOTAL BILIRUBIN 0.4 mg/dL (<0.1-1.0); TOTAL PROTEIN 6.5 g/dL (6.4-8.2)
[2020-08-05] MEDS ORDERED: PERCOCET 5-3251 EACH PO (09:23)
[2020-08-05] MEDS ORDERED: ZOFRAN ODT4 MG SUBLING (09:39)
[2020-08-05 09:46] VITALS: BP 148/89
--- NOTE | 2020-08-05 16:14 | EKG ---
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: : 1950 Requested By: Dhruv Enamorado Order Number: [id number] MD: Boaz Martinez Measurements Intervals [place] Rate: 85 P: 43 GA: 187 QRS: 9 QRSD: 108 T: 75 QT: 413 QTc: 492 Interpretive Statements Sinus rhythm poor r wave progression Left atrial enlargement Borderline prolonged QT interval Compared to ECG 12/08/2019 01:13:52 Ventricular premature complex(es) no longer present Electronically Signed On 08-05-2020 16:14:12 REEL STRIPPER by Boaz Martinez [email or web address] <ELECTRONICALLY SIGNED> By: Boaz Martinez MD, [facility] 08/05/20 1614 1 Boaz Martinez MD, [facility] /EPI
== END 2020-08-05 09:49 | disposition home or self-care (01) ==
LOC: M.ERS 04:32
PROVIDERS: Emergency Medicine; Family Medicine
DX: S22.41XA Multiple fractures of ribs, right side, initial encounter for closed fracture (principal); Z20.828 Contact with and (suspected) exposure to other viral communicable diseases; S90.31XA Contusion of right foot, initial encounter; I10 Essential (primary) hypertension; E66.01 Morbid (severe) obesity due to excess calories; M10.9 Gout, unspecified; Z79.899 Other long term (current) drug therapy; Z88.0 Allergy status to penicillin; Z88.1 Allergy status to other antibiotic agents; Z88.6 Allergy status to analgesic agent; W18.39XA Other fall on same level, initial encounter; Y93.89 Activity, other specified; Y92.89 Other specified places as the place of occurrence of the external cause; Y99.8 Other external cause status

== ENCOUNTER 2021-07-16 21:38 | Emergency (ER) | payer MEDICARE ==
[~2021-07-16] VITALS: Ht 170.2 cm; Wt 149.7 kg
[~2021-07-16 21:38] MED LIST changes: +ZOFRAN ODT4 MG SUBLING
[2021-07-17] MEDS ORDERED: HYDROCODON-ACE1 EAC8 PO (03:58)
[2021-07-17 04:08] VITALS: BP 138/82
== END 2021-07-17 04:08 | disposition home or self-care (01) ==
LOC: M.ERS 21:38
DX: S49.91XA Unspecified injury of right shoulder and upper arm, initial encounter (principal); S89.91XA Unspecified injury of right lower leg, initial encounter; I10 Essential (primary) hypertension; E66.01 Morbid (severe) obesity due to excess calories; Z68.43 Body mass index [BMI] 50.0-59.9, adult; M19.90 Unspecified osteoarthritis, unspecified site; E11.40 Type 2 diabetes mellitus with diabetic neuropathy, unspecified; Z85.42 Personal history of malignant neoplasm of other parts of uterus; Z79.899 Other long term (current) drug therapy; Z88.6 Allergy status to analgesic agent; Z88.0 Allergy status to penicillin; Z88.1 Allergy status to other antibiotic agents; W18.09XA Striking against other object with subsequent fall, initial encounter; Y93.89 Activity, other specified; Y92.89 Other specified places as the place of occurrence of the external cause; Y99.8 Other external cause status